=== PATIENT | male | born 1985 | race Caucasian/White ===

== ENCOUNTER 2019-02-16 16:27 | Emergency (ER) | payer OTHER ==
[~2019-02-16] VITALS: Ht 182.9 cm; Wt 104.3 kg
[2019-02-16 20:08] VITALS: BP 145/82
== END 2019-02-16 20:07 | disposition home or self-care (01) ==
LOC: ER 16:27
DX: S62.306A Unspecified fracture of fifth metacarpal bone, right hand, initial encounter for closed fracture (principal); W18.39XA Other fall on same level, initial encounter; Y93.89 Activity, other specified; Y99.8 Other external cause status; Y92.89 Other specified places as the place of occurrence of the external cause
CPT/HCPCS: 29125; 73130

== ENCOUNTER 2020-07-07 13:37 | Inpatient (IN) | payer OTHER ==
[~2020-07-07] VITALS: Ht 182.9 cm; Wt 104.7 kg
[2020-07-07 14:06] LABS: Hemoglobin 13.1 g/dL (13.5-17.5); Lymphocytes # (auto) 1.2 10 ^3/uL (0.4-5.4); Lymphocytes % (auto) 8.1 % (10.0-50.0); Neutrophils # (auto) 12.6 10 ^3/uL (1.6-8.6); Red Cell Distribution Width 13.8 % (11.8-14.3)
[2020-07-07 14:08] LABS: Basophils # (auto) 0 10 ^3/uL (0-0.2); Basophils % (auto) 0.3 % (0.0-2.0); Eosinophils # (auto) 0.1 10 ^3/uL (0-0.8); Eosinophils % (auto) 0.5 % (0.0-7.0); Mean Corpuscular Hemoglobin 28.7 pg (28.0-32.0); Mean Corpuscular Hgb Conc. 33.6 g/dL (32.0-36.0); Mean Corpuscular Volume 85.3 fL (80.0-100.0); Monocytes % (auto) 6.5 % (0.0-12.0); Neutrophils % (auto) 84.6 % (37.0-80.0); Red Blood Cells 4.57 10^6/uL (4.5-5.90); White Blood Cell 14.9 10^3/uL (4.4-10.8)
[2020-07-07 14:23] LABS: Partial Thromboplastin Time 26.2 sec (23.0-31.2)
[2020-07-07 14:32] LABS: Platelet Count (auto) 621 10^3/uL (140-450)
[2020-07-07 14:37] LABS: Albumin 2.7 g/dL (3.4-5.0); Calcium 9.5 mg/dL (8.5-10.1); Potassium 4.2 mmol/L (3.5-5.1)
[2020-07-07 14:41] LABS: BUN/Creatinine Ratio 9.2; Bilirubin, Total 0.7 mg/dL (0.2-1.0); Total Protein 7.3 g/dL (6.4-8.2)
[2020-07-07] MEDS ORDERED: SODIUM CHLORIDE 0.9% 500 ML IV ONE (15:00)
[2020-07-07] MEDS ORDERED: CLINDAMYCIN 600MG IV 50 ML IV ONE (15:00)
[2020-07-07] MEDS ORDERED: DOCUSATE CALCIUM 240 MG CAP PO PRN (16:45)
[2020-07-07] MEDS ORDERED: LORazepam 0.5 MG TAB PO PRN (16:45)
[2020-07-07] MEDS ORDERED: NITROGLYCERIN 0.4 MG SL TAB SL PRN (16:45)
[2020-07-07] MEDS ORDERED: LABETALOL HCL 5 MG/ML 4ML SYRINGE IV PRN (16:45)
[2020-07-07] MEDS ORDERED: TETANUS-DIPTH-ACEL PERTUSSIS 0.5ML SYR Tdap IM ONE (16:45)
[2020-07-07] MEDS ORDERED: ONDANSETRON HCL 4 MG/2 ML VIAL IV PRN (16:45)
[2020-07-07] MEDS ORDERED: ACETAMINOPHEN 500 MG TAB PO PRN (16:45)
[2020-07-07] MEDS ORDERED: SODIUM CHLORIDE 0.9% 1,000 ML IV ONE (16:45)
[2020-07-07] MEDS ORDERED: MORPHINE SULF INJ 2 MG/ML SYRINGE 1ML IV PRN (16:45)
[2020-07-07] MEDS: SODIUM CHLORIDE 0.9% 1,000 ML IV SCH (17:35)
[2020-07-07] MEDS: PIPERACILLIN-TAZOB 3.375GM 100 ML IV SCH (17:35)
[2020-07-07] MEDS ORDERED: KETOROLAC TROMETH 60MG/2ML VIAL IM ONE (17:45)
[2020-07-08] MEDS: PIPERACILLIN-TAZOB 3.375GM 100 ML IV SCH ×5 (00:54→23:44)
[2020-07-08] MEDS: SODIUM CHLORIDE 0.9% 1,000 ML IV SCH ×3 (02:56→23:48)
[2020-07-08 08:44] VITALS: BP 143/72
[2020-07-08 08:51] LABS: Basophils # (auto) 0 10 ^3/uL (0-0.2); Eosinophils # (auto) 0.1 10 ^3/uL (0-0.8); Lymphocytes # (auto) 1.3 10 ^3/uL (0.4-5.4); Red Cell Distribution Width 13.8 % (11.8-14.3)
[2020-07-08 08:54] LABS: Basophils % (auto) 0.2 % (0.0-2.0); Eosinophils % (auto) 1.1 % (0.0-7.0); Hematocrit 35.2 % (41.0-53.0); Lymphocytes % (auto) 11.4 % (10.0-50.0); Mean Corpuscular Hemoglobin 28.8 pg (28.0-32.0); Mean Corpuscular Hgb Conc. 34.1 g/dL (32.0-36.0); Mean Corpuscular Volume 84.4 fL (80.0-100.0); Monocytes % (auto) 8.9 % (0.0-12.0); Neutrophils # (auto) 8.8 10 ^3/uL (1.6-8.6); Neutrophils % (auto) 78.4 % (37.0-80.0); Platelet Count (auto) 502 10^3/uL (140-450); Red Blood Cells 4.17 10^6/uL (4.5-5.90); White Blood Cell 11.2 10^3/uL (4.4-10.8)
[2020-07-08 09:05] LABS: Albumin 2.3 g/dL (3.4-5.0); BUN/Creatinine Ratio 11.8; Calcium 8.9 mg/dL (8.5-10.1); Potassium 4.8 mmol/L (3.5-5.1)
[2020-07-08 09:07] LABS: Bilirubin, Total 0.8 mg/dL (0.2-1.0); Total Protein 6.4 g/dL (6.4-8.2)
[2020-07-08] MEDS: ENOXAPARIN SOD 40 MG/0.4 ML SYRINGE SC SCH (10:00)
[2020-07-08] MEDS: PANTOPRAZOLE 40 MG TAB PO SCH (10:04)
[2020-07-08 13:00] VITALS: BP 135/75
[2020-07-08 13:28] LABS: Cholesterol 120 mg/dL (< 200)
[2020-07-08 13:31] LABS: HDL Cholesterol 10 mg/dL (40-59); LDL Cholesterol 95 mg/dL (< 100); Triglycerides 125 mg/dL (< 150)
[2020-07-08 13:47] LABS: Urine Bacteria NONE SEEN /hpf (None Seen); Urine Blood Negative /uL (Negative); Urine Specific Gravity 1.015 (1.001-1.035); Urine WBC 1 /hpf (0 - 3)
[2020-07-08 14:35] LABS: Alcohol, Urine < 3.0 mg/dL (0-10); Amphetamine Screen, Urine NEGATIVE (NEGATIVE); Barbiturate Scree,Urine NEGATIVE (NEGATIVE); Benzodiazephine Screen, Urine NEGATIVE (NEGATIVE); Cannabinoid Screen, Urine NEGATIVE (NEGATIVE); Cocaine Screen, Urine NEGATIVE (NEGATIVE); Opiate Scree,Urine NEGATIVE (NEGATIVE); Phencyclidine Screen, Urine NEGATIVE (NEGATIVE)
[2020-07-08 16:52] VITALS: BP 136/80
[2020-07-08] MEDS: MORPHINE SULF INJ 2 MG/ML SYRINGE 1ML IV PRN (21:43)
[2020-07-08 22:00] VITALS: BP 141/73
[2020-07-09 05:00] VITALS: BP 123/68
[2020-07-09] MEDS: PIPERACILLIN-TAZOB 3.375GM 100 ML IV SCH ×3 (05:22→18:08)
[2020-07-09 07:16] LABS: Basophils # (auto) 0 10 ^3/uL (0-0.2); Eosinophils # (auto) 0.2 10 ^3/uL (0-0.8); Hematocrit 36.4 % (41.0-53.0); Lymphocytes # (auto) 1.6 10 ^3/uL (0.4-5.4)
[2020-07-09 07:21] LABS: Basophils % (auto) 0.2 % (0.0-2.0); Eosinophils % (auto) 1.8 % (0.0-7.0); Hemoglobin 12.3 g/dL (13.5-17.5); Lymphocytes % (auto) 14.7 % (10.0-50.0); Mean Corpuscular Hemoglobin 28.5 pg (28.0-32.0); Mean Corpuscular Hgb Conc. 33.7 g/dL (32.0-36.0); Mean Corpuscular Volume 84.7 fL (80.0-100.0); Monocytes % (auto) 8.6 % (0.0-12.0); Neutrophils # (auto) 8.3 10 ^3/uL (1.6-8.6); Neutrophils % (auto) 74.7 % (37.0-80.0); Nucleated Red Blood Cells % 0.2 %; Platelet Count (auto) 497 10^3/uL (140-450); Red Cell Distribution Width 13.8 % (11.8-14.3); White Blood Cell 11.1 10^3/uL (4.4-10.8)
[2020-07-09 07:28] LABS: Albumin 2.3 g/dL (3.4-5.0); Calcium 8.8 mg/dL (8.5-10.1); Magnesium 2.2 mg/dL (1.6-2.6); Potassium 4.7 mmol/L (3.5-5.1)
[2020-07-09 07:32] LABS: BUN/Creatinine Ratio 8.3; Bilirubin, Total 0.6 mg/dL (0.2-1.0); Phosphorus 3.6 mg/dL (2.5-4.90); Total Protein 6.6 g/dL (6.4-8.2)
[2020-07-09] MEDS: SODIUM CHLORIDE 0.9% 1,000 ML IV SCH (08:45)
[2020-07-09 09:00] VITALS: BP 123/68
[2020-07-09] MEDS: ENOXAPARIN SOD 40 MG/0.4 ML SYRINGE SC SCH (10:06)
[2020-07-09] MEDS: PANTOPRAZOLE 40 MG TAB PO SCH (10:06)
[2020-07-09] MEDS: MORPHINE SULF INJ 2 MG/ML SYRINGE 1ML IV PRN ×2 (11:28→21:36)
[2020-07-09 22:00] VITALS: BP 137/66
[2020-07-10] MEDS: PIPERACILLIN-TAZOB 3.375GM 100 ML IV SCH ×2 (00:15→06:00)
[2020-07-10 05:46] VITALS: BP 132/71
[2020-07-10] MEDS: PANTOPRAZOLE 40 MG TAB PO SCH (07:52)
[2020-07-10] MEDS: ENOXAPARIN SOD 40 MG/0.4 ML SYRINGE SC SCH (07:52)
[2020-07-10 09:00] VITALS: BP 130/73
[2020-07-10 10:57] LABS: Free T4 (Free Thyroxine) 0.23 ng/dL (0.89-1.76)
[2020-07-10 10:59] LABS: T3 Total 0.35 ng/mL (0.60-1.81)
== END 2020-07-10 12:00 | disposition home or self-care (01) | DRG 872 ==
LOC: ER 13:37 → TELE 13:38 → TELE-WESTW 07-08 06:12
PROVIDERS: ADMIT Family Medicine; ATTEND Internal Medicine
DX: A41.9 Sepsis, unspecified organism (principal); L03.115 Cellulitis of right lower limb; E87.1 Hypo-osmolality and hyponatremia; E44.0 Moderate protein-calorie malnutrition; R03.0 Elevated blood-pressure reading, without diagnosis of hypertension; S80.11XA Contusion of right lower leg, initial encounter; R73.9 Hyperglycemia, unspecified; F19.90 Other psychoactive substance use, unspecified, uncomplicated; E05.80 Other thyrotoxicosis without thyrotoxic crisis or storm; Z20.822 Contact with and (suspected) exposure to COVID-19; X58.XXXA Exposure to other specified factors, initial encounter; Y93.89 Activity, other specified; Y92.89 Other specified places as the place of occurrence of the external cause; Y99.8 Other external cause status; T38.7X5A Adverse effect of androgens and anabolic congeners, initial encounter
CPT/HCPCS: 36415; 71046; 80053; 80061; 80307; 81001; 82306; 83036; 83735; 84100; 84436; 84439; 84443; 84480; 85025; 85610; 85652; 85730; 87426; 90715; 93971; 96365; 96366; G0378; J1885; J2543; J3490

== ENCOUNTER → 2020-08-01 | Outpatient (CLI) | payer OTHER ==
[2020-08-01 12:06] LABS: Cholesterol 198 mg/dL (< 200); HDL Cholesterol 30 mg/dL (40-59); LDL Cholesterol 148 mg/dL (< 100); Triglycerides 100 mg/dL (< 150)
== END | disposition home or self-care (01) ==
LOC: LAB 11:09
PROVIDERS: ATTEND Internal Medicine
DX: E05.80 Other thyrotoxicosis without thyrotoxic crisis or storm (principal)
CPT/HCPCS: 36415; 80061; 84403; 84439; 84443

== ENCOUNTER 2023-12-02 20:00 | Emergency (ER) | payer OTHER ==
[~2023-12-02] VITALS: Ht 182.9 cm; Wt 104.0 kg
[2023-12-02 20:00] VITALS: BP 135/87; PULSE 81; RESP 18; O2SAT 97
[2023-12-02] MEDS ORDERED: GABA-1250 PO (21:50)
[2023-12-02] MEDS ORDERED: IBUP-1456 PO (21:50)
== END 2023-12-02 21:57 | disposition home or self-care (01) ==
LOC: ER 20:00
DX: M71.21 Synovial cyst of popliteal space [Baker], right knee (principal); M79.661 Pain in right lower leg
CPT/HCPCS: 93970

== ENCOUNTER 2024-08-09 17:26 | Emergency (ER) | payer OTHER ==
[~2024-08-09] VITALS: Ht 182.9 cm; Wt 109.0 kg
[~2024-08-09 17:26] MED LIST: GABA-1250 PO; IBUP-1456 PO
--- NOTE | 2024-08-09 20:20 | ED.PDOC ---
Back pain HPI HPI Comments 38 y.o male presents to the ED for an evaluation of a wound check. Patient presents with tenderness and trace edema to the right mid calf x 1 month that has increased size. Patient reports pain is also no radiating to his knee, ankle and foot. Patient was diagnosed with a sesay cyst recently, had an ultrasound last year at this ED resulting in "4.8 cm fluid collection extending to the popliteal region may represent a popliteal cyst if of clinical concern recommend MRI" Patient has not followed up with PCP since. At this time, patient denies any numbness, fever, chills. No other medical history reported. patient has visible varicose veins to right upper thigh. Chief Complaint: Lower Extremity Time Seen by MD: 17:34 Primary Care Provider: [email or web address] Reviewed Notes: Nurses Notes, Medications, Allergies Allergies: Coded Allergies: NO KNOWN ALLERGIES (Unverified , 02/16/19) Home Meds Active Scripts Doxycycline Hyclate (Doxycycline Hyclate) 100 Mg Cap, 100 MG PO BID for 10 Days, #20 CAP Prov:ISHAN YANEZ 08/09/24 Gabapentin (Gabapentin) 300 Mg Cap, 1 CAP PO TID, #30 CAP 0 Refills Prov:KRISTAN ENG 12/02/23 Ibuprofen (Ibuprofen) 800 Mg Tab, 1 TAB PO TID PRN, #30 TAB 0 Refills Prov:KRISTAN ENG 12/02/23 Information Source: Patient Mode of Arrival: Ambulatory Timing: Months (1) Severity: Moderate Onset: Spontaneous Associated signs and symptoms: Other Past Medical History PAST MEDICAL HISTORY: Denies Surgical History: Denies all surgeries Family History Family History: Unknown, Family hx of heart johnathon Social History Smoker: Non-Smoker Alcohol: Occasionally Drugs: Denies Drug Use Lives In: Home Constitutional: denies: chills, diaphoresis, fatigue, fever, malaise, sweats, weakness, others EENTM: denies: blurred vision, double vision, ear bleeding, ear discharge, ear drainage, ear pain, ear ringing, eye pain, eye redness, hearing loss, mouth pain, mouth swelling, nasal discharge, nose bleeding, nose congestion, nose p ain, photophobia, tearing, throat pain, throat swelling, voice changes, others Respiratory: denies: cough, hemoptysis, orthopnea, SOB at rest, shortness of breath, SOB with excertion, stridor, wheezing, others Cardiovascular: denies: chest pain, dizzy spells, diaphoresis, Dyspnea on exertion, edema, irregular heart beat, left arm pain, lightheadedness, palpitations, PND, syncope, others Gastrointestinal: denies: abdomen distended, abdominal pain, blood streaked bowels, constipated, diarrhea, dysphagia, difficulty swallowing, hematemesis, melena, nausea, poor appetite, poor fluid intake, rectal bleeding, rectal pain, vomiting, others Genitourinary: denies: burning, dysuria, flank pain, frequency, hematuria, incontinence, penile discharge, penile sore, pain, testicle pain, testicle swelling, urgency, others Neurological: denies: dizziness, fainting, headache, left sided numbness, left sided weakness, numbness, paresthesia, pre-existing deficit, right sided numbness, right sided weakness, seizure, speech problems, tingling, tremors, weakness, others Musculoskeletal: denies: back pain, gout, joint pain, joint swelling, muscle pain, muscle stiffness, neck pain, others Integumetry: reports: others (right mid calf erythema trace edema ); denies: bruises, change in color, change in hair/nails, dryness, laceration, lesions, lumps, rash, wounds Allergic/Immunocompromised: denies: Difficulty Healing, Frequent Infections, Hives, Itching, others Hematologic/Lymphatic: denies: anemia, blood clots, easy bleeding, easy bruising, swollen glands, others Endocrine: denies: excessive hunger, excessive sweating, excessive thirst, excessive urination, flushing, intolerance to cold, intolerance to heat, unexplained weight gain, unexplained weight loss, others Psychiatric: denies: anxiety, bipolar disorder, depression, hopeless, panic disorder, schizophrenia, sleepless, suicidal, others All Other Systems: Reviewed and Negative Physical Exam General Appearance: No Apparent Distress, Normal HEENT: Normal ENT Inspection Neck: Full Range of Motion, Non-Tender Respiratory: No Accessory Muscle Use, No Respiratory Distress, Normal Breath Sounds Cardiovascular: No Edema, No Murmur, No Gallop, Normal Peripheral Pulses, Regular Rate/Rhythm Breast Exam: Deferred Gastrointestinal: Non Tender, Normal Bowel Sounds Genitalia: Deferred Pelvic: Deferred Rectal: Deferred Extremities: Leg edema (mild mid calf warm on palpation ), Pedal edema (trace pitting edema ), Tender (right mid calf on palpation ), Other (strong pedal pulse.) Neurologic: Alert, tire builder II-XII nml as Tested, No Motor Deficits, Normal Affect, Normal Mood, No Sensory Deficits Cerebellar Function: Normal Reflexes: Normal Skin: Dry, Normal Color, Warm Lymphatic: NOT DONE Was a procedure done? Was a procedure done?: No Back Pain Differential Dx Differential Diagnosis: Musculoskeletal Pain Other Differential Diagnosis DVT, Sesay cyst, cellulitis X-Ray, Labs, Meds, VS Vital Signs Date Time Temp Pulse Resp B/P (MAP) Pulse Ox O2 Delivery O2 Flow Rate FiO2 08/09/24 20:35 82 19 96 Room Air 08/09/24 20:35 98.2 82 19 129/90 (103) 96 98.2 08/09/24 17:47 98.0 88 16 141/80 (100) 97 98.0 X-Ray, Labs, Meds, VS Comment CT of right lower leg shows possible cellulitis abscess along with reactive right inguinal adenopathy. Patient given Rocephin 1 g IV. We will discharge with doxycycline twice daily x7 days. Advised to take medications as prescribed side effects discussed. Advised to follow up with his primary care doctor in 1- 2 days for a follow up ultrasound Doppler venous which he did have recently here which showed no DVT. ER return precautions given patient indicates understanding agrees with discharge charge plan of care Time of 1ST Reevaluation: 20:20 Reevaluation 1ST: Unchanged Patient Education/Counseling: Diagnosis, Treatment, Prognosis Family Education/Counseling: No Family Present Departure 1 Departure Time of Disposition: 22:44 Impression: Primary Impression: Cellulitis of right leg Disposition: 01 HOME / SELF CARE / HOMELESS Condition: Stable e-Prescriptions Doxycycline Hyclate (Doxycycline Hyclate) 100 Mg Cap 100 MG PO BID for 10 Days, #20 CAP Prov: ISHAN YANEZ AYALA 08/09/24 Discharged With: Significant Other Critical Care Note Critical Care Time?: No Stability Stability form required: No Heart Score Heart Score: Heart Score Response (Comments) Value History N/A 0 EKG N/A 0 Age N/A 0 Risk Factors N/A 0 Troponin N/A 0 Total 0 I personally scribed for GIO GORDON DO ([email or web address]) on 08/09/24 at 20:27. Electronically submitted by Yadira Olivas ([email or web address]). ISHAN YANEZ Aug 09, 2024 20:20 GIO GORDON DO Aug 09, 2024 20:27
[2024-08-09 20:35] VITALS: BP 129/90; PULSE 82; RESP 19; TEMP 98.2; O2SAT 96
[2024-08-09] MEDS: IOHEXOL 350 MG/ML 100ML IJ ONE (21:03)
--- NOTE | 2024-08-09 22:37 | DVH ---
CT Angiography of the right lower extremity CLINICAL HISTORY: REDNESS AND PAIN COMPARISON: At the time of review, no recent prior studies are available for comparison. TECHNIQUE: CT scan of the right lower extremity is performed following the administration of intravenous contras t. Exam is reviewed in bone, soft tissue, and lung windows. 3-D postprocessing performed. One or mor e of the following radiation dose reduction techniques were used for this examination: automated expo sure control, adjustment of the mA and/or kV according to patient size, use of iterative reconstructi on technique. FINDINGS: The visualized right common iliac, external/ internal iliac, common femoral, profunda femoral, superf icial femoral and popliteal arteries appear patent. Patent 3-vessel inflow to the foot. Subcutaneous edema along proximal anterolateral right thigh. Fluid seen tracking anteriorly between the sartorius and rectus femoral muscles. Subcutaneous fluid also noted in the posterior, medial calf . No soft tissue gas noted at this time. No destructive osseous changes. Mildly enlarged right inguinal lymph nodes partially imaged. IMPRESSION: No evidence of major arterial vascular occlusion. Subcutaneous edema/fluid noted within the anterolateral thigh and posterior medial calf. Findings are relatively nonspecific but may reflect cellulitis. Phlegmonous change/early abscess formation can no t be entirely excluded. Recommend ultrasound follow-up. Right inguinal adenopathy may be reactive.
[2024-08-09] MEDS ORDERED: cefTRIAXone SOD 1,000 MG VL IM ONE (22:45)
[2024-08-09] MEDS ORDERED: DOXY100C4 PO (22:46)
[2024-08-09] MEDS: cefTRIAXone 1GM/50ML D5W 50 ML IV ONE (23:25)
== END 2024-08-09 23:40 | disposition home or self-care (01) ==
LOC: ER 17:26
DX: L03.115 Cellulitis of right lower limb (principal); Z79.899 Other long term (current) drug therapy
CPT/HCPCS: 73706; 99285; Q9967